=== PATIENT | male | born 1990 | race Caucasian/White ===

== ENCOUNTER → 2020-07-29 14:08 | Outpatient (CLI) | payer OTHER, SELFPAY ==
[2020-07-29 16:31] LABS: Coronavirus 19 IgG Antibody Positive (Negative); Coronavirus 19 IgM Antibody Negative (Negative)
== END ==
PROVIDERS: Visit Provider Internal Medicine Gastroenterology
DX: Z01.818 Encounter for other preprocedural examination (principal); Z20.822 Contact with and (suspected) exposure to COVID-19; R13.10 Dysphagia, unspecified
CPT/HCPCS: 36415; 86328

== ENCOUNTER 2020-07-30 10:35 | Day surgery (SDC) | payer OTHER, SELFPAY ==
[2020-07-20 09:31] VITALS: BMI 28.4
[2020-07-30] VITALS (8 sets, daily range): BP systolic 101–137; BP diastolic 64–84; PULSE 52–88; RESP 18–20; TEMP 36.2–36.7; O2SAT 94–98
--- NOTE | 2020-07-30 12:02 | P.PN_ITS ---
[facility] Anesthesia Checklist - Patient Identification Patient Identification: Arm Band - Structural Data Admitted From: Home Planned Operative Procedure/s: EGD Consent for Planned Operative Procedure(s) Verified: Yes - NPO Status Verified Time NPO: 00:00 - Additional verifications Anesthesia Reactions: No - Airway Assessment C-Spine Mobility Assessed: Yes TMJ Mobility Assessed: Yes Dentition: Good Dentition - Neurological Assessment Level of Consciousness: Awake Hx Seizures: No Numbness or tingling in extremities: No - Anesthesia Plan Anesthesia Risk discussed: Yes Anesthesia Plan: Verified ASA Class: I Anesthesia Type: MAC [facility] History I have reviewed the patient's past medical history: Yes Medical History: Reports:: Gastroesophageal Reflux Disease(GERD) Denies:: Cancer, Diabetes Mellitus Type 1, Diabetes Mellitus Type 2, Internal Pacemaker, Lung Disease, MRSA, Seizures *Have you ever received a pneumonia vaccine?: No *Have you received a flu vaccine this season?: No Anesthesia experience/problems:: None Other Surgeries: No: Pacemaker Amputation: No Fractures: No - *Social History Last grade of school completed: High school graduate Smoking Status: Never smoker Alcohol Intake: never Substance Use Type: denies use *Occupational Status:: employed Housing: house Household Members: spouse *Travel in the last 8 weeks: None Family Hx:: Cancer
--- NOTE | 2020-07-30 12:20 | P.PCN_ITS ---
[facility] Procedure Note Procedure Note:: Upper Endoscopy Procedure Report: Esophagogastroduodenoscopy with cold biopsies and TTS balloon dilation Endoscopost: Marquis Boggs II, MD Referring Physician: Graham Perez MD Date of Procedure: July 30, 2020 Equipment: Olympus GIF 190 standard upper endoscope Sedation: MAC sedation Indications: Mr. Kraus is a 30-year-old gentleman with a history of dysphagia which he has had this for nearly 2 decades. He did have an upper endoscopy with il on May 06, 2018 (2 years ago) and had evidence of eosinophilic esophagitis and mild reflux esophagitis. The patient had subsequent [facility] food allergy testing that did show a number of class I and class II food allergies. The patient did well after the dilation previously but has had recurrent swallowing difficulty/dysphagia to primarily solids (breads and meats). He reports no heartburn, reflux, belching, bloating or dyspepsia. Procedure: Prior to the procedure, a history and physical exam was performed, and patient's medications and allergies were reviewed. The risks, benefits and alternatives of the sedation and procedure were discussed with the patient. All questions were answered and informed consent was obtained. The patient was brought to the procedure room. Patient identification and proposed procedure were verified by the physician and the nurse. The patient was placed in a left lateral decubitus position and the scope was passed under direct vision. Throughout the procedure, the patient's blood pressure, pulse, and oxygen saturations were monitored continuously. The upper GI endoscopy was accomplished without difficulty. The patient tolerated the procedure well. Findings: The scope was passed directly into the upper esophagus and advanced to the third portion of the duodenum. The post bulbar duodenum and duodenal bulb were normal with normal mucosa and conniventes. The scope was withdrawn through a normal duodenal bulb and pylorus into the stomach. There was minimal reactive gastropathy of the antrum. The remainder of the antrum, body and fundus of the stomach were grossly normal. Upon retroflexion there was a small 2 cm hiatal hernia. The scope was then withdrawn into the esophagus. There was reflux esophagitis with the appearance of possible short segment Corea's esophagus. Cold biopsies were taken from this distal esophagus near the GE junction to rule out Corea's. There was also corrugation/linear striation and furrowing of the esophagus with reduced esophageal diameter. This was consistent with eosinophilic esophagitis. Cold biopsies were taken from the mid distal esophagus and separately taken from the proximal esophagus to rule out eosinophilic esophagitis. The original diameter of the esophagus in some places was 8 mm. This was gently dilated up to 16 mm maximally with a TTS hydrostatic balloon. Impression: 1. Moderate eosinophilic esophagitis status post dilation to 16 mm (from original diameter of 8 mm in distal and proximal esophagus) 2. 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 Minimal reactive gastropathy Plan: I will follow-up the biopsies. I would have the patient resume omeprazole (40 mg p.o. daily). I will review his food allergies and prescribe fluticasone as well. We will discuss these treatment options.
== END 2020-07-30 13:30 | disposition home or self-care (01) ==
LOC: OUTP 10:36
PROVIDERS: PCP Family Medicine; Visit Provider Internal Medicine Gastroenterology
PROC: 0DJ08ZZ Inspection of Upper Intestinal Tract, Via Natural or Artificial Opening Endoscopic (ICD-10-PCS; CPT 43235; principal; 2020-07-30 12:00)
DX: K20.0 Eosinophilic esophagitis (principal); K21.00 Gastro-esophageal reflux disease with esophagitis, without bleeding; K44.9 Diaphragmatic hernia without obstruction or gangrene; K31.9 Disease of stomach and duodenum, unspecified; Z87.19 Personal history of other diseases of the digestive system; Z88.0 Allergy status to penicillin; Z88.2 Allergy status to sulfonamides
CPT/HCPCS: 43239; 43249; C1726

== ENCOUNTER 2021-06-29 19:06 | Emergency (ER) | payer OTHER, SELFPAY ==
[2021-06-29 21:03] VITALS: BP 128/58; PULSE 103; RESP 18; TEMP 36.8; O2SAT 97; BMI 26.0
--- NOTE | 2021-06-29 21:10 | HMH.EDUTC ---
[facility] Disposition Clinical Impression: Contact dermatitis Qualifiers: Contact dermatitis type: unspecified Contact dermatitis trigger: unspecified trigger Qualified Code(s): L25.9 - Unspecified contact dermatitis, unspecified cause Disposition: Home, Self-Care Condition on Discharge: Good Instructions: DI for Contact Dermatitis Additional Instructions: Try to identify and avoid contact with the offending substance . Don't start the oral steroids until tomorrow. Don't put the topical steroids (triamcinolone) on your face or your groin. Take the benedryl regularly for the next few days, but it will make you drowsy, so don't drive or operate heavy machinery after taking it. Follow up with your regular doctor. GO TO THE ER FOR ANY WORSENING SYMPTOMS OR CONCERNS Prescriptions: diphenhydrAMINE HCL [Diphenhydramine HCl] 25 mg PO Q6HP PRN #30 cap PRN Reason: Itching Transmission Status: Received by [id number] methylPREDNISolone [Medrol] 4 mg PO DIRECTED 6 Days #21 packet Transmission Status: Received by [id number] Triamcinolone Acetonide 1 applicatio TP TIDP PRN 7 Days #1 gm PRN Reason: Itching Transmission Status: Received by [id number] Referrals: Kevin Palomares MD [Primary Care Provider] - Forms: Work/School Release Time of Disposition: 21:26 Medical Decision Making - Medical Records Medical records reviewed: No: I reviewed the patient's medical records. - Nii Inquiry Pt receiving controlled substance: No Vital Signs: 06/29/21 21:03 06/29/21 21:30 Temperature 98.3 F 98.3 F Temperature Source Oral Pulse Rate 103 H Pulse Rate [Left Radial] 103 H Respiratory Rate 18 18 Blood Pressure 128/58 L Blood Pressure [Left Arm] 128/58 L Blood Pressure Mean [Left Arm] 81 Blood Pressure Source [Left Arm] Automatic Cuff Blood Pressure Position [Left Arm] Sitting 02 Sat by Pulse Oximetry 97 Oxygen Delivery Method Room Air Orders (Tests/Meds): ED MEDICATIONS Discontinued Medications Generic Name Dose Route Start Last Admin Trade Name Freq PRN Reason Stop Dose Admin Methylprednisolone Sodium Succinate 125 mg 06/29/21 21:18 06/29/21 21:22 Methylprednisolone Sod Succ 125mg Vial IM 06/29/21 21:19 125 mg ONCE ONE Administration [facility] HPI - General Stated complaint: Rash Time Seen by Provider: 06/29/21 21:10 Mode of Arrival: Ambulatory Source of Information: Patient Limitations: No Limitations Description of Symptoms (Recalled from Triage Doc. by RN): C/O rash on forehead, rt hand, core, face, since . Pt c/o itching, but denies pain HEENT Symptoms (Recalled from RN notes): No Resp Symptoms (Recalled from RN notes): No Skin Symptoms (Recalled from RN notes): Yes (Rash) MS Symptoms (Recalled from RN notes): No Functional Status (Recalled from RN notes): n/a - History of Present Illness Provider Complaint: He states that he has a rash on his forehead, below both eyes, front of his neck, both hands and forearm. 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 He has a history of being very sensitive to poison frederick and other plants. - Related Data Previous Rx's Medication Instructions Recorded Triamcinolone Acetonide 1 applicatio TP TIDP PRN 7 Days #1 06/29/21 gm diphenhydrAMINE HCL 25 mg PO Q6HP PRN #30 cap 06/29/21 [Diphenhydramine HCl] methylPREDNISolone [Medrol] 4 mg PO DIRECTED 6 Days #21 06/29/21 packet Allergies Allergy/AdvReac Type Severity Reaction Status Date / Time Sulfa (Sulfonamide Allergy Mild Verified 07/20/20 09:35 Antibiotics) [SULFA (SULFONAMIDE ANTIBIOTICS)] PCN Allergy Mild Uncoded 10/22/18 11:43 - Worker's Comp Is this a Worker's Comp case?: No [facility] History - Hepatitis A Screen Drug use history?: No High risk sexual behaviors?: No History of sexually transmitted infection?: No Currently employed?: No [employer]
[2021-06-29 21:30] VITALS: BP 128/58; PULSE 103; RESP 18; TEMP 36.8; O2SAT 97
== END 2021-06-29 21:30 | disposition home or self-care (01) ==
PROVIDERS: Emergency Provider Nurse Practitioner Family; PCP Family Medicine
DX: L25.9 Unspecified contact dermatitis, unspecified cause (principal); K21.9 Gastro-esophageal reflux disease without esophagitis
CPT/HCPCS: 96372; 99212; G0463

== ENCOUNTER 2021-10-23 11:02 | Emergency (ER) | payer OTHER, SELFPAY ==
--- NOTE | 2021-10-23 11:26 | HMH.EDUTC ---
[facility] Disposition Clinical Impression: Poison linda dermatitis Contact dermatitis Qualifiers: Contact dermatitis type: unspecified Contact dermatitis trigger: non-food plants Qualified Code(s): L25.5 - Unspecified contact dermatitis due to plants, except food Disposition: Home, Self-Care Condition on Discharge: Good Instructions: DI for Contact Dermatitis, DI for Poison Linda Allergy Additional Instructions: Avoid contact with the offending substance (poison linda). Don't start the oral steroids until tomorrow. Don't put the topical steroids (triamcinolone) on your face or your groin. Follow up with your regular doctor. GO TO THE ER FOR ANY WORSENING SYMPTOMS OR CONCERNS Prescriptions: methylPREDNISolone [Medrol] 4 mg PO DIRECTED 6 Days #21 packet Transmission Status: Received by [id number] Triamcinolone Acetonide 1 applicatio TP TIDP PRN 7 Days #1 gm PRN Reason: Itching Transmission Status: Received by [id number] Referrals: Kevin Palomares MD [Primary Care Provider] - Time of Disposition: 11:31 Medical Decision Making - Medical Records Medical records reviewed: No: I reviewed the patient's medical records. - Nii Inquiry Pt receiving controlled substance: No Vital Signs: 10/23/21 11:31 10/23/21 11:42 Temperature 98.0 F 98.0 F Temperature Source Oral Pulse Rate 62 Pulse Rate [Left] 62 Respiratory Rate 17 17 Blood Pressure 134/76 Blood Pressure [Right Arm] 134/76 Blood Pressure Mean [Right Arm] 95 02 Sat by Pulse Oximetry 98 Orders (Tests/Meds): ED MEDICATIONS Discontinued Medications Generic Name Dose Route Start Last Admin Trade Name Freq PRN Reason Stop Dose Admin Methylprednisolone Sodium Succinate 125 mg 10/23/21 11:28 10/23/21 11:40 Methylprednisolone Sod Succ 125mg Vial IM 10/23/21 11:29 125 mg ONCE ONE Administration [facility] HPI - General Stated complaint: poison linda Time Seen by Provider: 10/23/21 11:26 - History of Present Illness Provider Complaint: He was exposed to poison linda about 3 days ago. He is very sensitive to poison linda. Since then he has had rash and itching of his face and bilateral arms. - Related Data Previous Rx's Medication Instructions Recorded Triamcinolone Acetonide 1 applicatio TP TIDP PRN 7 Days #1 06/29/21 gm diphenhydrAMINE HCL 25 mg PO Q6HP PRN #30 cap 06/29/21 [Diphenhydramine HCl] methylPREDNISolone [Medrol] 4 mg PO DIRECTED 6 Days #21 06/29/21 packet Triamcinolone Acetonide 1 applicatio TP TIDP PRN 7 Days #1 10/23/21 gm methylPREDNISolone [Medrol] 4 mg PO DIRECTED 6 Days #21 10/23/21 packet Allergies Allergy/AdvReac Type Severity Reaction Status Date / Time Sulfa (Sulfonamide Allergy Mild Verified 07/20/20 09:35 Antibiotics) [SULFA (SULFONAMIDE ANTIBIOTICS)] PCN Allergy Mild Uncoded 10/22/18 11:43 [facility] History - Hepatitis A Screen Attestation statement:: This patient has been screened for Hepatitis A risk factors. I have reviewed the patient's past medical history: Yes Medical History: Reports:: Gastroesophageal Reflux Disease(GERD) Denies:: Cancer, Diabetes Mellitus Type 1, Diabetes Mellitus Type 2, Internal Pacemaker, Lung Disease, MRSA, Seizures Comment: dysphagia Other Surgeries: No: Pacemaker Amputation: No Fractures: No - Social History Smoking Status: Never smoker Alcohol Intake: never Substance Use Type: denies use Occupational Status: employed Housing: house Household Members: spouse Family Hx:: Cancer ROS Obtained: Yes All systems reviewed & no additional complaints - Constitutional Constitutional: Denies chills, Denies fever(s) - Musculoskeletal Musculoskeletal: Denies joint pain - Integumentary/Breasts Skin/Breast: Reports as per HPI Physical Exam - General General appearance: alert, in no apparent distress - Head Head exam: atraumatic, normocephalic, normal inspection - Eye Eye
[2021-10-23 11:31] VITALS: BP 134/76; PULSE 62; RESP 17; TEMP 36.7; O2SAT 98; BMI 26.8
[2021-10-23 11:42] VITALS: BP 134/76; PULSE 62; RESP 17; TEMP 36.7
== END 2021-10-23 11:48 | disposition home or self-care (01) ==
PROVIDERS: Emergency Provider Nurse Practitioner Family; PCP Family Medicine
DX: L23.7 Allergic contact dermatitis due to plants, except food (principal)
CPT/HCPCS: 99212; G0463

== ENCOUNTER 2025-02-09 11:31 | Outpatient (CLI) | payer OTHER, SELFPAY ==
--- OUTSIDE RECORDS SUMMARY | 2023-10-11 12:30 | XMS_ITS ---
Author Organization [facility] Address [address] [place] [id number] Care Team Providers Care Prosthetic Dentist Name Role Phone Evi Palomares Primary Care Provider Chandrika Marion [phone] Allergies Allergen (clinical drug ingredient) Drug/Non Drug Allergy documented on EMR Reaction Allergy Type Onset Date Status Substance with penicillin structure and antibacterial mechanism of action (substance) Penicillins hives Drug Allergy Active Substance with sulfonamide structure and antibacterial mechanism of action (substance) Sulfa Antibiotics hives Drug Allergy Active REASON FOR VISIT poison frederick Medications Medication SIG (Take, Route, Frequency, Duration) Notes Start Date End Date Status Ubrelvy 100 MG 1 tab(s) orally with onset of headache. May repeat x 1 after 2 hours 03/12/2021 Active Dupixent 100 MG/0.67ML as directed Subcutaneous Active dexAMETHasone 4 MG 1 tablet Orally Two times a day; Duration: 5 day(s) 10/11/2023 Active Triamcinolone Acetonide 0.1 % 1 application Externally three times a day as needed 10/11/2023 Active Vital Signs Weight 209.6 lbs 10/11/2023 Blood pressure systolic 110 mm Hg 10/11/19 24 Blood pressure diastolic 78 mm Hg 024 Heart Rate 65 /min 10/11/2023 Height 72 in 10/11/2023 BMI 28.42 kg/m2 10/11/2023 Encounters Encounter Location Date Provider Diagnosis [facility] [address] [place] [id number] 10/11/2023 Chandrika Marion Poison frederick L23.7 Assessments Encounter Date Diagnosis (ICD Code) Assessment Notes Treatment Notes Treatment Clinical Notes Section Notes 10/11/2023 Poison frederick (ICD-10 - L23.7) Plan Of Treatment Medication Medication Name Sig Start Date Stop Date Notes dexAMETHasone 4 MG 1 tablet Orally Two times a day; Duration: 5 day(s) 10/11/2023 Triamcinolone Acetonide 0.1 % 1 applicat ion Externally three times a day as needed 10/11/2023 Next Appt Details Follow Up: prn, Reason: Progress Notes * NATASHAROSELIADOB:1990 ( 34 yo M)Acc No.[id number]:10/11/2023 Progress Notes Patient: ROSELIA TAVAREZ Provider: ROE Jeffries :1990 A ge:33 Y S ex:Male Date:10/11/2023 Address:[address] [place], [place] [address] [id number] Pcp:Evi Palomares Subjective: * Chief Complaints: * 1 . Poison frederick. * HPI: D ermatology: The pt is here today with c/o poison frederick on both arms. Pt states this is very itchy. Pt states has tried Hydrocortisone cream that only helps for a little while. 33 year old male presents with c/o rash. * ROS: D ERMATOLOGY: no R maverick. n o H manjit. G ASTROENTEROLOGY: no N ausea. n o V omiting. n o D iarrhea.? U ROLOGY: no D ifficulty urinating. n o B lood in urine. * Medical History: E osinophilic esophagitis, Esophageal stricture. * Surgical History: b lood boil removed from forehead 2008, I&D lip abscess/ Dr. Briceño 04/2017, EGD with dilitation/ Dr. Boggs 04/2018. * Hospitalization/Major Diagno stic Procedure: H ER - protocal check up due to exposure 01/2016. * Family History: F ather: alive 55 yrs. M other: alive 55 yrs. 2 brother(s) - healthy. . * Social History: C URRENT TOBACCO USE S moking Status: P atient does NOT smoke. C affeine: no, frequency:. Home smoke detector use: yes. New since last visit: none. Occupation: law enforcement. Alcohol: No. * Medications: T aking Dupixent 100 MG/0.67ML Solution Prefilled Syringe as directed Subcutaneous , Taking Ubrelvy 100 MG Tablet 1 tab(s) orally with onset of headache. May repeat x 1 after 2 hours , Discontinued Zithromax Z-Gilbert 250 MG Tablet as directed Orally once daily , Discontinued Promethazine-Codeine 6.25-10 MG/5ML Syrup 5-10 mL orally every 6 hours prn , Discontinued Medrol 4 MG Tablet Therapy Pack as directed orally daily , Discontinued Triamcinolone Acetonide 0.1 % Cream 1 application Externally three times a day as needed , Medication List reviewed and reconciled with the patient * Allergies: P enicillins: hives, Sulfa Antibiotics: hives . Objective: * Vitals: W t:209.6, Temp:97.7, BP:110/78, HR:65, Nurse:LAMBERT, Ht: 72, BMI:28.42. * Examination: G eneral Examination: General Appearance: N AD. C hest: n ormal shape and expansion. H eart: R SR. L ungs: c lear to auscultation. S kin: erythematous linear rash on the arms, chest, and legs, pruritic. Assessment: * Assessment: 1. P christin frederick - L23.7 (Primary) Plan: * Treatment: * Follow Up: p rn * Images: Billing Information: * Visit Code: 21203 Office Visit, Est Pt., Level 3. * Procedure Codes: * Electronic signature of ROE Barker on 02/09/2025 at 11:35 AM EDT Sign off status: Pending * Provider: ROE Jeffries Date: 0 10/11/2023 Generated for Mario jackman/Rafy/Libertaditting on: 1 11:35 AM EDT History and Physical Notes * HPI (History of Present Illness) Category Sub-Category Detail Notes Category Not es Dermatology rash Examination Category Sub-Category Detail Notes Category Not es General Examination Heart: RSR Lungs: clear to auscultatio n General Appearance: NAD Skin: erythematous linear rash on the arms, chest, and legs, pruritic Chest: normal shape and exp ansion
--- OUTSIDE RECORDS SUMMARY | 2024-06-26 10:15 | XMS_ITS ---
Author Organization [facility] Address [address] [facility] [address] [place] [id number] Care Team Providers Care Knitter Operator Name Role Phone Evi Palomares Primary Care Provider Chandrika Marion Unavailable [phone] Allergies Allergen (clinical drug ingredient) Drug/Non Drug Allergy documented on EMR Reaction Allergy Type Onset Date Status Substance with penicillin structure and antibacterial mechanism of action (substance) Penicillins hives Drug Allergy Active Substance with sulfonamide structure and antibacterial mechanism of action (substance) Sulfa Antibiotics hives Drug Allergy Active REASON FOR VISIT hematoma on his right ear Medications Medication SIG (Take, Route, Fr equency, Duration) Notes Start Date End Date Status Dupixent 100 MG/0.67ML as directed Subcutaneous Active Ubrelvy 100 MG 1 tab(s) orally with onset of headache. May repeat x 1 after 2 hours 03/12/2021 Active Vital Signs Weight 202.6 lbs 06/26/2024 Blood pressure systolic 118 mm Hg 06/27/19 25 Blood pressure diastolic 72 mm Hg 025 Heart Rate 79 /min 06/26/2024 Height 72 in 06/26/2024 BMI 27.47 kg/m2 06/26/2024 Encounters Encounter Location Date Provider Diagnosis [facility] [address] [facility] [address] [place] [id number] 06/26/2024 Chandrika Marion Hematoma of right external ear, initial encounter S00.431A Assessments Encounter Date Diagnosis (ICD Code) Assessment Notes Treatment Notes Treatment Clinical Notes Section Notes 06/26/2024 Hematoma of right external ear, initial encounter (ICD-10 - S00.431A) Hematoma was aspirated with an 18 gauge needle with no difficulty and a pressure dressing was applied. Plan Of Treatment Treatment Notes Assessment Notes Hematoma of right external e ar, initial encounter Hematoma was aspirated with an 18 gauge needle with no difficulty and a pressure dressing was applied. Next Appt Details Follow Up: prn, Reason: Progress Notes * ROSELIA KAURDOB:1990 ( 34 yo M)Acc No.[id number]:06/26/2024 Progress Notes Patient: ROSELIA TAVAREZ Provider: ROE Jeffries :1990 A ge:34 Y S ex:Male Date:06/26/2024 Address:[facility] [place], [id number] Pcp:Evi Palomares Subjective: * Chief Complaints: * 1 . Hematoma on his right ear. * HPI: D ermatology: 34 year old male presents with c/o Swelling P t complains of rt ear swelling that happened 2 weeks ago. 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 * ROS: C ARDIOLOGY: no D izziness. n o C hest pain. G ASTROENTEROLOGY: no N ausea. n o V omiting. U ROLOGY: no D ifficulty urinating. n o B lood in urine. * Medical History: E osinophilic esophagitis, Esophageal stricture. * Surgical History: b lood boil removed from forehead 2008, I&D lip abscess/ Dr. Briceño 04/2017, EGD with dilitation/ Dr. Boggs 04/2018. * Hospitalization/Major Diagno stic Procedure: H [facility] ER - protocal check up due to exposure 01/2016. * Family History: F ather: alive 56 yrs. M other: alive 56 yrs. 2 brother(s) - healthy. . * [...] x 1 after 2 hours , Discontinued dexAMETHasone 4 MG Tablet 1 tablet Orally Two times a day , Discontinued Triamcinolone Acetonide 0.1 % Cream 1 application Externally three times a day as needed , Medication List reviewed and reconciled with the patient * Allergies: P enicillins: hives, Sulfa Antibiotics: hives . Objective: * Vitals: W t:202.6, Temp:97.8, BP:118/72, HR:79, Nurse:hillary, Ht: 72, BMI:27.47. * Examination: G eneral Examination: General Appearance: N AD. C hest: n ormal shape and expansion. H eart: R SR. L ungs: c lear to auscultation. S kin: h ematoma of the triangular fossa of the right ear, the patient was prepped with Betadine and numbing was done locally with epinephrine. Dr. Palomares aspirated the ear with an 18 gauge needle and a pressure dressing was placed. Assessment: * Assessment: 1. H ematoma of right external ear, initial encounter - S00.431A (Primary) Plan: * Treatment: * Procedure Codes: 6 9005 DRAIN EXTERNAL EAR LESION, 3074F SYST BP LT 130 MM HG, 3078F DIAST BP < 80 MM HG * Follow Up: p rn * Images: Billing Information: * Visit Code: 90297 Office Visit, Est Pt., Level 3. Modifiers: 25 * Procedure Codes: 23032 DRAIN EXTERNAL EAR LESION. 3074F SYST BP LT 130 MM HG. 3078F DIAST BP < 80 MM HG. * Electronic signature of ROE Barker on 02/09/2025 at 11:35 AM EDT Sign off status: Pending * Provider: ROE Jeffries Date: 0 06/26/2024 Generated for Mario jackman/Rafy/Libertaditting on: 1 11:35 AM EDT History and Physical Notes * HPI (History of Present Illness) Category Sub-Category Detail Notes Category Not es Dermatology Swelling Pt complains of rt ear swelling that happened 2 weeks ago. 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 Dr. Palomares aspirated the ear with an 18 gauge needle and a pressure dressing was placed Chest: normal shape and exp ansion
--- OUTSIDE RECORDS SUMMARY | 2024-09-05 11:00 | XMS_ITS ---
Author Organization [facility] Address [address] [place] [id number] Care Team Providers Care Plug Grower Name Role Phone Evi Palomares Primary Care Provider [phone] Chandrika Marion Unavailable [phone] Allergies Allergen (clinical drug ingredient) Drug/Non Drug Allergy documented on EMR Reaction Allergy Type Onset Date Status Substance with penicillin structure and antibacterial mechanism of action (substance) Penicillins hives Drug Allergy Active Substance with sulfonamide structure and antibacterial mechanism of action (substance) Sulfa Antibiotics hives Drug Allergy Active REASON FOR VISIT POISON IVNY Medications Medication SIG (Take, Route, Fr equency, Duration) Notes Start Date End Date Status Dupixent 100 MG/0.67ML as directed Subcutaneous Active Ubrelvy 100 MG 1 tab(s) orally with onset of headache. May repeat x 1 after 2 hours 03/12/2021 Active Medrol 4 MG as directed orally d aily; Duration: 6 days 09/05/2024 Active Vital Signs Weight 206.4 lbs 09/05/2024 Blood pressure systolic 120 mm Hg 09/06/19 25 Blood pressure diastolic 80 mm Hg 025 Heart Rate 68 /min 09/05/2024 Height 72 in 09/05/2024 BMI 27.99 kg/m2 09/05/2024 Encounters Encounter Location Date Provider Diagnosis [facility] [address] [place] [id number] 09/05/2024 Chandrika Marion Poison frederick L23.7 Assessments Encounter Date Diagnosis (ICD Code) Assessment Notes Treatment Notes Treatment Clinical Notes Section Notes 09/05/2024 Poison frederick (ICD-10 - L23.7) Will give a shot today and start oral steroids tomorrow. Plan Of Treatment Medication Medication Name Sig Start Date Stop Date Notes Medrol 4 MG as directed orally daily; Duration: 6 days Treatment Notes Assessment Notes Poison frederick Will give a shot tod ay and start oral steroids tomorrow. Next Appt Details Follow Up: via phone to repo rt test results, Reason: Medications Administered Medication Instructions Date of Administration Dosage Notes Dexamethasone 09/05/2024 1 mL Progress Notes * ROSELIA KAURDOB:1990 ( 34 yo M)Acc No.[id number]:09/05/2024 Progress Notes Patient: ROSELIA TAVAREZ Provider: ROE Jeffries :1990 A ge:34 Y S ex:Male Date:09/05/2024 Address:[address] [place], [place] [address], [id number] Pcp:Evi Palomares Subjective: * Chief Complaints: * 1 . POISON IVNY. * HPI: D ermatology: 34 year old male presents with c/o poison frederick P t sts he is here today with poison frederick and sts it is on both of his arms and some under the rt axilla. * ROS: C ARDIOLOGY: no D izziness. [...] repeat x 1 after 2 hours , Medication List reviewed and reconciled with the patient * Allergies: P enicillins: hives, Sulfa Antibiotics: hives. Objective: * Vitals: W t: 206.4, Temp: 97.8, BP: 120/80, HR: 68, Nurse: genevieve, Ht: 72, BMI:27.99. * Examination: G eneral Examination: General Appearance: N AD. C hest: n ormal shape and expansion. H eart: R SR. L ungs: c lear to auscultation. S kin: erythematous linear rash on the arms, pruritic. Assessment: * Assessment: 1. P christin mack - L23.7 (Primary) Plan: * Treatment: * Therapeutic Injections: Dexamethasone : 1 mL (Route: Intramuscular) given by GENEVIEVE Stafford on left gluteus (Poison frederick) * Procedure Codes: J 1100 Dexamethasone, 99451 ADMINISTRATION OF INJECTION * Follow Up: v ia phone to report test results * Images: Billing Information: * Visit Code: 22323 Office Visit, Est Pt., Level 3. Modifiers: 25 * Procedure Codes: J1100 Dexamethasone. 29341 ADMINISTRATION OF INJECTION. * Electronic signature of ROE Barker on 02/09/2025 at 11:36 AM EDT Sign off status: Pending * Provider: ROE Jeffries Date: 0 09/05/2024 Generated for Mario jackman/Rafy/eTransmitting on: 1 11:36 AM EDT History and Physical Notes * HPI (History of Present Illness) Category Sub-Category Detail Notes Category Not es Dermatology poison frederick Pt sts he is her e today with poison frederick and sts it is on both of his arms and some under the rt axilla Examination Category Sub-Category Detail Notes Category Not es General Examination Heart: RSR Lungs: clear to auscultatio n General Appearance: NAD Skin: erythematous linear rash on the arms, pruritic Chest: normal shape and exp ansion
--- OUTSIDE RECORDS SUMMARY | 2024-09-12 12:00 | XMS_ITS ---
Author Organization [facility] Address [address] [place] [id number] Care Team Providers Care Press Operator [employer] Name Role Phone Evi Palomares Primary Care Provider [phone] Ana Graham Unavailable [phone] Allergies Allergen (clinical drug ingredient) Drug/Non Drug Allergy documented on EMR Reaction Allergy Type Onset Date Status Substance with penicillin structure and antibacterial mechanism of action (substance) Penicillins hives Drug Allergy Active Substance with sulfonamide structure and antibacterial mechanism of action (substance) Sulfa Antibiotics hives Drug Allergy Active REASON FOR VISIT left ear hematoma Medications Medication SIG (Take, Route, Frequency, Duration) Notes Start Date End Date Status Ubrelvy 100 MG 1 tab(s) orally with onset of headache. May repeat x 1 after 2 hours 03/12/2021 Active Medrol 4 MG as directed orally d aily; Duration: 6 days 09/05/2024 Not-Taking Dupixent 100 MG/0.67ML as directed Subcutaneous Active Vital Signs Weight 208.2 lbs 09/12/2024 Blood pressure systolic 120 mm Hg 09/13/19 25 Blood pressure diastolic 80 mm Hg 025 Heart Rate 62 /min 09/12/2024 Height 72 in 09/12/2024 BMI 28.23 kg/m2 09/12/2024 Encounters Encounter Location Date Provider Diagnosis [facility] [address] [place] [id number] 09/12/2024 Graham Perez Hematoma of left ear , initial encounter S00.432A Assessments Encounter Date Diagnosis (ICD Code) Assessment Notes Treatment Notes Treatment Clinical Notes Section Notes 09/12/2024 Hematoma of left ear, initial encounter (ICD-10 - S00.432A) Wear ear protection when wrestling Plan Of Treatment Treatment Notes Assessment Notes Hematoma of left ear, initial encounter Wear ear protection when wrestling Next Appt Details Follow Up: prn, Reason: Procedure Notes * Category Sub-Category Detail Notes Procedure-other Procedure Informed consent obtained, Betadine prep, lidocaine 1%, #18 gauge needle used to aspirate 1.5 mL of blood from ear, sterile gauze placed over wound. Patient tolerated procedure well Progress Notes * ROSELIA KAURDOB:1990 ( 34 yo M)Acc No.[id number]:09/12/2024 Progress Notes Patient: ROSELIA TAVAREZ Provider: Francia Perez M.D. :1990 A ge:34 Y S ex:Male Date:09/12/2024 Address:[address] [place] [address] [id number] Pcp:Evi Palomares Subjective: * Chief Complaints: * 1 . Left ear hematoma. * HPI: D ermatology: Pt sts he is here today to have his lt ear drained. He had an injury while wrestling 2 days ago. He does not wear ear protection when wrestling. * ROS: C ARDIOLOGY: no D izziness. [...] repeat x 1 after 2 hours , Not-Taking Medrol 4 MG Tablet Therapy Pack as directed orally daily , Medication List reviewed and reconciled with the patient * Allergies: P enicillins: hives, Sulfa Antibiotics: hives. Objective: * Vitals: W t: 208.2, Temp: 97.7, BP: 120/80, HR: 62, Nurse: mmnick, Ht: 72, BMI:28.23. * Examination: G eneral Examination: General Appearance: N AD. S kin: s uperior portion of left external ear with a hematoma present. Assessment: * Assessment: 1. H ematoma of left ear, initial encounter - S00.432A (Primary) Plan: * Treatment: * Procedures: P rocedure-other: Procedure I nformed consent obtained, Betadine prep, lidocaine 1%, #18 gauge needle used to aspirate 1.5 mL of blood from ear, sterile gauze placed over wound. Patient tolerated procedure well. * Procedure Codes: 6 9000 DRAIN EXTERNAL EAR LESION * Follow Up: p rn * Images: Billing Information: * Visit Code: * Procedure Codes: 05790 DRAIN EXTERNAL EAR LESION. * Electronic signature of Annabel Perez MD on 02/09/2025 at 11:35 AM EDT Sign off status: Pending * Provider: Francia Perez M.D. Date: 0 09/12/2024 Generated for Mario jackman/Rafy/Mohsensmitting on: 1 11:35 AM EDT History and Physical Notes * HPI (History of Present Illness) Category Sub-Category Detail Notes Category Not es Dermatology Pt sts he is he re today to have his lt ear drained. He had an injury while wrestling 2 days ago. He does not wear ear protection when wrestling Examination Category Sub-Category Detail Notes Category Not es General Examination General Appearance: NAD Skin: superior portion of left external ear with a hematoma present
--- OUTSIDE RECORDS SUMMARY | 2024-11-03 06:45 | XMS_ITS ---
Author Organization [facility] Address [address] [place] [id number] Care Team Providers Care Samples And Repairs Preparer Name Role Phone Evi Palomares Primary Care Provider Dee Kenny Unavailable [phone] Allergies Allergen (clinical drug ingredient) Drug/Non Drug [...] Duration) Notes Start Date End Date Status Medrol 4 MG as directed orally d aily; Duration: 6 days 11/03/2024 Active Ubrelvy 100 MG 1 tab(s) orally with onset of headache. May repeat x 1 after 2 hours 03/12/2021 Active Triamcinolone Acetonide 0.1 % 1 application Externally Twice a day; Duration: 14 days 11/03/2024 Active Dupixent 100 MG/0.67ML as directed Subcutaneous Active Vital Signs Weight 202.8 lbs 11/03/2024 Blood pressure systolic 120 mm Hg 11/04/19 25 Blood pressure diastolic 62 mm Hg 025 Heart Rate 75 /min 11/03/2024 Height 72 in 11/03/2024 BMI 27.5 kg/m2 11/03/2024 Encounters Encounter Location Date Provider Diagnosis [facility] [address] [place] [id number] 11/03/2024 Dee Kenny Allergic dermatitis due to poison frederick L23.7 and BMI 27.0-27.9,adult Z68.27 Assessments Encounter Date Diagnosis (ICD Code) Assessment Notes Treatment Notes Treatment Clinical Notes Section Notes 11/03/2024 Allergic dermatitis due to poison frederick (ICD-10 - L23.7) He said he has had this before and he comes to get a steroid shot, steroid pack, and some cream and it helps. We will proceed with this. He is to continue to drink fluids and stay out of the sun as it can make it worse. 11/03/2024 BMI 27.0-27.9,adult (ICD-10 - Z68.27) Plan Of Treatment Medication Medication Name Sig Start Date Stop Date Notes Medrol 4 MG as directed orally d aily; Duration: 6 days 11/03/2024 Triamcinolone Acetonide 0.1 % 1 applicat ion Externally Twice a day; Duration: 14 days 11/03/2024 Treatment Notes Assessment Notes Allergic dermatitis due to poison frederick He said he has had this before and he comes to get a steroid shot, steroid pack, and some cream and it helps. We will proceed with this. He is to continue to drink fluids and stay out of the sun as it can make it worse. Next Appt Details Follow Up: prn, Reason: Medications Administered Medication Instructions Date of Administration Dosage Notes Dexamethasone 11/03/2024 1 mL Progress Notes * ROSELIA KAURDOB:1990 ( 34 yo M)Acc No.[id number]:11/03/2024 Progress Notes Patient: ROSELIA TAVAREZ Provider: ANGELO Pereira :1990 A ge:34 Y S ex:Male Date:11/03/2024 Address:[facility] [place], [id number] Pcp:Evi Palomares Subjective: * Chief Complaints: * 1 . Poison frederick. * HPI: D ermatology: 34 year old male presents with c/o itching P t has poison frederick on both of his arms, chest and face since Sunday. * ROS: D ERMATOLOGY: Rash y es. n o H manjit. G ASTROENTEROLOGY: no [...] x 1 after 2 hours , Discontinued Medrol 4 MG Tablet Therapy Pack as directed orally daily , Medication List reviewed and reconciled with the patient * Allergies: P enicillins: hives, Sulfa Antibiotics: hives. Objective: * Vitals: W t: 202.8, Temp: 97.9, BP: 120/62, HR: 75, Nurse: pe, Ht: 72, BMI:27.5. * Examination: G eneral Examination: General Appearance: N AD, appears healthy. H eart: R RR. L ungs: n ormal, clear to auscultation. N eurologic Exam: a lert and oriented.?Skin: p oison frederick rash on bilateral arms, chest, and abdomen. scattered. P eripheral pulses: n ormal (2+) bilaterally. Assessment: * Assessment: 1. A llergic dermatitis due to poison frederick - L23.7 (Primary) 2 . B PA 27.0-27.9,adult - Z68.27 Plan: * Treatment: * Therapeutic Injections: Dexamethasone : 1 mL (Route: Intramuscular) given by ASHOK Stafford on left gluteus (Allergic dermatitis due to poison frederick) * Procedure Codes: J 1100 Dexamethasone, 34513 ADMINISTRATION OF INJECTION, 1036F TOBACCO NON-USER, G8420 BMI<30 AND >=22 CALC & DOCU, G8783 BP SCR PRFRM RCMDD DEFIND SCR INTVL, 3074F SYST BP LT 130 MM HG, 3078F DIAST BP < 80 MM HG * Follow Up: p rn * Images: Billing Information: * Visit Code: 19234 Office Visit, Est Pt., Level 3. Modifiers: 25 * Procedure Codes: J1100 Dexamethasone. 30502 ADMINISTRATION OF INJECTION. 1036F TOBACCO NON-USER. G8420 BMI<30 AND >=22 CALC & DOCU. G8783 BP SCR PRFRM RCMDD DEFIND SCR INTVL. 3074F SYST BP LT 130 MM HG. 3078F DIAST BP < 80 MM HG. * Electronic signature of Mariana Kenny APRN on 02/09/2025 at 11:34 AM EDT Sign off status: Pending * Provider: ANGELO Pereira Date: 0 11/03/2024 Generated for Mario jackman/Rafy/Corrine on: 1 11:34 AM EDT History and Physical Notes * HPI (History of Present Illness) Category Sub-Category Detail Notes Category Not es Dermatology itching Pt has poison iv y on both of his arms, chest and face since Sunday Examination Category Sub-Category Detail Notes Category Not es General Examination Heart: RRR Lungs: normal, clear to aus cultation General Appearance: NAD, appears healthy Skin: poison frederick rash on b ilateral arms, chest, and abdomen. scattered Neurologic Exam: alert and oriented Peripheral pulses: normal (2+) bilatera lly
--- OUTSIDE RECORDS SUMMARY | 2025-01-21 06:15 | XMS_ITS ---
Author Organization [facility] Address [address] [place] [id number] Care Team Providers Care Fiber Machine Tender Name Role Phone Evi Palomares Primary Care Provider Chandrika Marion [phone] Allergies Allergen (clinical drug ingredient) Drug/Non Drug Allergy documented on EMR Reaction Allergy Type Onset Date Status Substance with penicillin structure and antibacterial mechanism of action (substance) Penicillins hives Drug Allergy Active Substance with sulfonamide structure and antibacterial mechanism of action (substance) Sulfa Antibiotics hives Drug Allergy Active REASON FOR VISIT Update immunization flu shot and TB skin Medications Medication SIG (Take, Route, Fr equency, Duration) Notes Start Date End Date Status Ubrelvy 100 MG 1 tab(s) orally with onset of headache. May repeat x 1 after 2 hours 03/12/2021 Active Dupixent 100 MG/0.67ML as directed Subcutaneous Active Immunizations Vaccine Route Administration Date Status Comme nts Fluzone Quad (6months&older) IM Intramuscular 01/21/2025 Administered ppd TD Transdermal 01/21/2025 Administered Vital Signs Weight 205.6 lbs 01/21/2025 Blood pressure systolic 112 mm Hg 01/22/20 25 Blood pressure diastolic 80 mm Hg 025 Heart Rate 71 /min 01/21/2025 Height 72 in 01/21/2025 BMI 27.88 kg/m2 01/21/2025 Encounters Encounter Location Date Provider Diagnosis [facility] [address] [place] [id number] 01/21/2025 Chandrika Marion Routine physical examination Z00.00 ; BMI 27.0-27.9,adult Z68.27 ; Encounter for immunization Z23 and Screening for tuberculosis Z11.1 Assessments Encounter Date Diagnosis (ICD Code) Assessment Notes Treatment Notes Treatment Clinical Notes Section Notes 01/21/2025 Routine physical examination (ICD-10 - Z00.00) Patient is cleared for [employer] training. Will get a copy of childhood immunizations to finish filling out his documentation. 01/21/2025 BMI 27.0-27.9,adult (ICD-10 - Z68.27) 01/21/2025 Encounter for immunization (ICD-10 - Z23) 01/21/2025 Screening for tuberculosis (ICD-10 - Z11.1) Plan Of Treatment Treatment Notes Assessment Notes Routine physical examination Patient is cleared for [employer] training. Will get a copy of childhood immunizations to finish filling out his documentation. Next Appt Details Follow Up: 2 days, Reason: T B read Progress Notes * ROSELIA KAURDOB:1990 ( 34 yo M)Acc No.[id number]:01/21/2025 Progress Notes Patient: ROSELIA TAVAREZ Provider: ROE Jeffries :1990 A ge:34 Y S ex:Male Date:01/21/2025 Address:[facility] [place], [id number] Pcp:Evi Palomares Subjective: * Chief Complaints: * 1 . Update immunization flu shot and TB skin. * HPI: H PI: Patient is here today for P t states he just want to get a checkup for a class he is going to in Apr 2025. Pt states he needs to be up to date on immunization.? * ROS: D ERMATOLOGY: no R maverick. n o H manjit. G ASTROENTEROLOGY: no N ausea. n o V omiting. n o D iarrhea.? U ROLOGY: no B lood in urine. n o F requent urination. ? * Medical History: E osinophilic esophagitis, Esophageal [...] x 1 after 2 hours , Discontinued Triamcinolone Acetonide 0.1 % Lotion 1 application Externally Twice a day , Discontinued Medrol 4 MG Tablet Therapy Pack as directed orally daily , Medication List reviewed and reconciled with the patient * Allergies: P enicillins: hives, Sulfa Antibiotics: hives. Objective: * Vitals: W t: 205.6, Temp: 97.6, BP: 112/80, HR: 71, Nurse: pe, Ht: 72, BMI:27.88. * Examination: G eneral Examination: General Appearance: N AD. H EENT: u nremarkable.?Oral cavity: n o lesions, mucosa moist and WNL, no erythema. N pramod: s upple, no lymphadenopathy. C hest: n ormal shape and expansion. H eart: R SR. L ungs: c lear to auscultation. A bdomen: b owel sounds present, soft and nontender, no organomegaly or masses, no guarding or rigidity. N eurologic Exam: I ntact, gait normal. S kin: n ormal, no rash. P eripheral pulses: n ormal (2+) bilaterally. E xtremities: n o leg edema. Assessment: * Assessment: 1. R outine physical examination - Z00.00 (Primary) 2 . B OK 27.0-27.9,adult - Z68.27 3 . E ncounter for immunization - Z23 4 . S creening for tuberculosis - Z11.1 Plan: * Treatment: * Immunizations: Fluzone Quad (6months&older) : 0.5 mL (Route: Intramuscular) given by Lupis Kwon on Right Deltoid (Encounter for immunization) ppd : 0.1 mL (Route: Transdermal) given by Lupis Kwon on Left Lower Forearm (Screening for tuberculosis) * Procedure Codes: 1 036F TOBACCO NON-USER, 3074F SYST BP LT 130 MM HG, 3079F DIAST BP 80-89 MM HG * Follow Up: 2 days (Reason: TB read) * Images: Billing Information: * Visit Code: 44478 Preventive Care Est Pt 18-39. * Procedure Codes: 1036F TOBACCO NON-USER. 3074F SYST BP LT 130 MM HG. 3079F DIAST BP 80-89 MM HG. * Electronic signature of ROE Barker on 02/09/2025 at 11:34 AM EDT Sign off status: Pending * Provider: ROE Jeffries Date: Generated for Mario jackman/Rafy/eTransmitting on: 11:34 AM EDT History and Physical Notes * HPI (History of Present Illness) Category Sub-Category Detail Notes Category Not es HPI Patient is here today for Pt sta yan he just want to get a checkup for a class he is going to in Apr 2025. Pt states he needs to be up to date on immunization Examination Category Sub-Category Detail Notes Category Not es General Examination HEENT: unremarkable Heart: RSR Lungs: clear to auscultatio n Abdomen: bowel sounds present , soft and nontender, no organomegaly or masses, no guarding or rigidity Extremities: no leg edema General Appearance: NAD Skin: normal, no rash Neurologic Exam: Intact, gait normal Neck: supple, no lymphaden opathy Oral cavity: no lesions, mucosa m oist and WNL, no erythema Peripheral pulses: normal (2+) bilatera lly Chest: normal shape and exp ansion
--- OUTSIDE RECORDS SUMMARY | 2025-01-23 09:35 | XMS_ITS ---
Author Organization [facility] Address [address] [facility] [address] [place] [id number] Care Team Providers Care Utility Bag Assembler Name Role Phone Evi Palomares Primary Care Provider Chandrika Marion [phone] REASON FOR VISIT TB test read Encounters Encounter Location Date Provider Diagnosis [facility] [address] [facility] [address] [place] [id number] 01/23/2025 Chandrika Marion Plan Of Treatment No Information Progress Notes * NATASHAROSELIA PEREZDOB:1990 ( 34 yo M)Acc No.[id number]:01/23/2025 Patient: ROSELIA TAVAREZ Provider: ROE Jeffries :1990 A ge:34 Y S ex:Male Date:01/23/2025 [address] [id number] Pcp:Evi Palomares Subjective: * Chief Complaints: * 1 . TB test read. * Medical History: Objective: * Vitals: Assessment: Plan: * Treatment: * Images: Billing Information: * Visit Code: * Procedure Codes: * Electronic signature of ROE Barker on 02/09/2025 at 11:34 AM EDT Sign off status: Pending * Provider: ROE Jeffries Date: 1 Generated for Printi ng/Faxing/eTransmitting on: 11:34 AM EDT
--- NOTE | 2025-02-09 11:35 | XR_ITS ---
FINAL REPORT CLINICAL HISTORY: HAND EDEMA swelling/redness near 5th mcp nki COMPARISON: None FINDINGS: RIGHT HAND: Three views show no evidence of acute displaced fracture or dislocation of the visualized bony architecture. The joint spaces appear normal. IMPRESSION: Unremarkable exam. Reviewed, Interpreted and Dictated by Jimy Hightower MD Transcribed by Carole Rothman Authenticated and [facility]
--- OUTSIDE RECORDS SUMMARY | 2025-02-09 11:35 | XMS_ITS | Clinical Summary ---
Author Organization [facility] Address [address] [place] [address] Phone [email or web address] Care Team Providers Care [employer] Advisor Name Role Phone Unavailable Primary Care Provider Unavailabl e Active Problems Problem Noted Date Diagnosed Date Encounter for screening, unspecified 09/11/2018 Overview (01/05/2021): Encounter for immunization 02/23/2017 Overview (01/05/2021): Immunizations Immunization Administration Dates Next Due Influenza single-dose SYRING E (Afluria, Fluarix, Fluzone, Flulaval) trivalent (CVX-140) 02/23/2017 Influenza, (Afluria Fluarix Flulaval Fluzone) quad, PF (CVX-150) 03/01/2022 Social History Tobacco Use Types Packs/Day Years Used Date Smoking Tobacco: Never Assessed Intimate Partner Violence Answer Date R ecorded Insults You Not on file 01/09/2021 Threatens You Not on file 01/09/2021 Screams at You Not on file 01/09/2021 Physically Hurt Not on file 01/09/2021 Intimate Partner Violence Score Not on file 01/09/2021 Stress Answer Date Recorded Stress in your Life Not on file 02/27/2024 Dealing with Stress 3 02/27/2024 Sex and Gender Information Value Date Recorded Sex Assigned at Not on file Legal Sex Male 2:44 PM CDT Gender Identity Not on file Sexual Orientation Not on file Last Filed Vital Signs Vital Sign Reading Time Taken Comments Blood Pressure 120/88 02/21/2023 5:37 PM EDT Pulse 65 03/08/2022 1:19 PM EST Temperature - - Respiratory Rate - - Oxygen Saturation - - Inhaled Oxygen Concentration - - Weight 88.5 kg (195 lb) 02/21/2023 5:37 PM EDT Height 180.3 cm (5' 11 ) 02/21/2023 5:37 PM EDT Body Mass Index 27.2 02/21/2023 5:37 PM EDT Plan of Treatment Health Maintenance Due Date Last Done Comments Dental Cleaning/Exam 1990 HIV Screening 1990 Hepatitis C Screening 1990 HPV Immunization (1 - Male 3-dose series) 2005 Annual Preventive Exam 2008 Hep B Infection Screening - Triple Screen 2008 Polio Immunization (2 of 3 - Adult catch-up series) 01/20/2009 12/23/2008 Covid-19 Immunization ( - ) 12/22/2024 Influenza Immunization (#1) 2024 11/0 12/2021, 02/14/2019, 02/23/2017, Additional history exists Tetanus Diphtheria and Pertussis Immunization (3 - Td or Tdap) 04/08/2031 04/08/2021, 12/23/2008 Hepatitis B Immunization Completed 010, 02/17/2009, 12/29/2008, Additional history exists Hepatitis A Immunization Completed 018, 09/22/2009, 02/17/2009, Additional history exists HIB Immunization Aged Out No longer e ligible based on patient's age to complete this topic Pneumococcal Immunization Aged Out No longer eligible based on patient's age to complete this topic Varicella Immunization Aged Out No lo nger eligible based on patient's age to complete this topic Insurance [facility]
--- OUTSIDE RECORDS SUMMARY | 2025-02-09 11:37 | XMS_ITS | Patient Health Record ---
[facility] Address [address] [place] [id number] Care Team Providers Care Pest Controller Assistant Name Role Phone Evi Palomares Primary Care Provider Graham Perez Unavailable [phone] Dee Kenny Unavailable [phone] Chandrika Marion Unavailable [phone] Allergies Allergen (clinical drug ingredient) Drug/Non Drug Allergy documented on EMR Reaction Allergy Type Onset Date Status Substance with penicillin structure and antibacterial mechanism of action (substance) Penicillins hives Drug Allergy Active Substance with sulfonamide structure and antibacterial mechanism of action (substance) Sulfa Antibiotics hives Drug Allergy Active Reason For Referral No Information Medications Medication SIG (Take, Route, Fr equency, Duration) Notes Start Date End Date Status Dupixent 100 MG/0.67ML as directed Subcutaneous Active Medrol 4 MG as directed orally d aily; Duration: 6 days 02/09/2025 Active Immunizations Vaccine Route Administration Date Status Comme nts Fluzone Intradermal Quad private(18-64yrs) ID Intradermal 02/19/2015 Administered Fluzone PF Quad (6-35 months) Unknown 03/01/2022 Administered Fluzone Quad (6months&older) IM Intramuscular 02/11/2016 Administered Fluzone Quad (6months&older) IM Intramuscular 02/14/2019 Administered Fluzone Quad (6months&older) IM Intramuscular 01/21/2025 Administered Hepatitis A (adult) Unknown 03/23/2018 Administered HEPB VACC PED/ADOL DOSE IM Unknown 11/27/2001 Administe red MMR Unknown 11/27/2001 Administered ppd TD Transdermal 01/21/2025 Administered Tetanus Tdap-Adacel (over 7yrs) IM Intramuscular 05/01/2016 Administered Tetanus Tdap-Adacel (over 7yrs) Unknown 04/08/2021 Administered Problems Problem Type SNOMED Code ICD Code Onset Dates Problem Status W/U Status Risk Notes Problem Migraine variant with headache (disorder) (958294918) Migraine headache (G43.909) Active confirmed Problem Tinnitus (59175412) Tinnitus (H93.19) Active confirmed Problem Esophageal dysphagia (07083759) Esophageal dysphagia (R13.10) Active confirmed Problem Personality change (892370546) Personality change (F68.8) Active confirmed Vital Signs Heart Rate 68 /min 02/09/2025 Blood pressure diastolic 70 mm Hg 02/09/2025 Height 72 in 02/09/2025 Blood pressure systolic 120 mm Hg 02/09/2025 Weight 208 lbs 02/09/2025 BMI 28.21 kg/m2 02/09/2025 Encounters Encounter Location Date Provider Diagnosis [facility] [address] [facility] [address] [place], [place] [id number] 06/26/2024 Chandrika Crowdy Hematoma of right external ear, initial encounter S00.431A [facility] [address] [facility] [address] [place] [id number] 09/05/2024 Chandrika Binhdy Poison frederick L23.7 [facility] [address] [place] [id number] 09/12/2024 Graham Strathmere Hematoma of left ear , initial encounter S00.432A [facility] [address] [facility] [address] [place], [place] [id number] 11/03/2024 Dee Kenny Allergic dermatitis due to poison frederick L23.7 and BMI 27.0-27.9,adult Z68.27 [facility] [address] [facility] [address] [place], [place] [id number] 01/21/2025 Chandrika Binhdy Routine physical examination Z00.00 ; BMI 27.0-27.9,adult Z68.27 ; Encounter for immunization Z23 and Screening for tuberculosis Z11.1 [facility] [address] [facility] [address] [place] [id number] 01/23/2025 Chandrika Marion [facility] [address] [facility] [address] [place] [id number] 02/09/2025 Dee Kenny Hand edema R60.0 [facility] [address] [facility] [address] [place] [id number] 01/23/2025 Chandrika [place] Assessments Encounter Date Diagnosis (ICD Code) Assessment Notes Treatment Notes Treatment Clinical Notes Section Notes 06/26/2024 Hematoma of right external ear, initial encounter (ICD-10 - S00.431A) Hematoma was aspirated with an 18 gauge needle with no difficulty and a pressure dressing was applied. 09/05/2024 Poison frederick (ICD-10 - L23.7) Will give a shot today and start oral steroids tomorrow. 09/12/2024 Hematoma of left ear, initial encounter (ICD-10 - S00.432A) Wear ear protection when wrestling 11/03/2024 BMI 27.0-27.9,adult (ICD-10 - Z68.27) 11/03/2024 Allergic dermatitis due to poison frederick (ICD-10 - L23.7) He said he has had this before and he comes to get a steroid shot, steroid pack, and some cream and it helps. We will proceed with this. He is to continue to drink fluids and stay out of the sun as it can make it worse. 01/21/2025 BMI 27.0-27.9,adult (ICD-10 - Z68.27) 01/21/2025 Routine physical examination (ICD-10 - Z00.00) Patient is cleared for [employer] training. Will get a copy of childhood immunizations to finish filling out his documentation. 02/09/2025 Hand edema (ICD-10 - R60.0) ice and may start heat tomorrow; IBUPROPHEN 600mg tid with food; MDP with food; elevated when possible 01/21/2025 Encounter for immunization (ICD-10 - Z23) 01/21/2025 Screening for tuberculosis (ICD-10 - Z11.1) Plan Of Treatment Pending Test Test Name Order Date X ray : Hand, right 02/09/2025 CBC Venipuncture (in house) 02/09/2025 P-Uric Acid 02/09/2025 Insurance Providers Payer Name Payer Address Payer Phone Subscriber Number Group Number Insured Name Patient Relationship to Insured Coverage Start Date Coverage End Date [facility] [address] [address] [place] [phone] [id number] ROSELIA KAUR Self - patient is the insured Medications Administered Medication Instructions Date of Administration Dosage Notes Dexamethasone 09/15/2022 1 mL Dexamethasone 11/15/2022 1 mL Dexamethasone 09/05/2024 1 mL Dexamethasone 11/03/2024 1 mL Medical (General) History Medical History History ICD Code Eosinophilic esophagitis Esophageal stricture Surgical History Surgery Date(Month/Year) blood boil removed from forehead 2008 I&D lip abscess/ Dr. Briceño 04/2017 EGD with dilitation/ Dr. Boggs 04/2018 Hospitalization History Reason Date(Month/Year) [facility] ER - protocal check up due to exposu re 01/2016
== END 2025-02-09 23:59 | disposition home or self-care (01) ==
LOC: RAD 11:32
PROVIDERS: PCP Physician Assistant; Visit Provider Nurse Practitioner Family
DX: R60.0 Localized edema (principal)
CPT/HCPCS: 73130